=== PATIENT | male | born 1940 | race Caucasian/White ===

== ENCOUNTER → 2017-09-15 19:03 | Outpatient (CLI) | payer MEDICARE, MEDICAID ==
[2016-07-21 11:00] VITALS: BMI 23.5
[~2017-09-15 19:03] MED LIST: ADVAIR HFA [SP]12 GM INH; ARICEPT10 MG PO; ATIVAN1 MG PO; ATIVAN2 MG/ML IM; CASODEX50 MG PO; DESERYL100 MG PO; GLIPIZIDE10 MG PO; GLUCOPHAGE1000 MG PO; HALDOL5 MG/ML IM; HALOPERIDOL2 MG PO; IPRAT-ALBUT 0.5-3 ML UPD; LISINOPRIL10 MG PO; PROAIR HFA8.5 GM INH; PROTONIX40 MG PO; SEROQUEL XR150 MG PO; SYMBICORT 16010.2 GM INH; VITAMIN D5000 UNIT PO; VITAMIN D50000 UNIT PO; ZOCOR20 MG PO; ZYPREXA ZYDI5 MG/TAB PO
[2017-09-15 19:30] LABS: APPEARANCE CLEAR (CLEAR); BILIRUBIN NEGATIVE (NEGATIVE); COLOR YELLOW (YELLOW); GLUCOSE 1000 mg/dL (NEGATIVE); KETONE NEGATIVE (NEGATIVE); NITRITE NEGATIVE (NEGATIVE); PROTEIN NEGATIVE (NEGATIVE); SPECIFIC GRAVITY 1.015 (1.005-1.020); UROBILINOGEN NORMAL (NORMAL)
[2017-09-15 19:32] LABS: BACTERIA FEW /hpf (NONE SEEN)
== END | disposition home or self-care (01) ==
LOC: D.LABREF 19:03
PROVIDERS: Family Medicine
DX: N39.0 Urinary tract infection, site not specified (principal)

== ENCOUNTER 2017-09-23 15:41 | Emergency (ER) | payer MEDICARE ==
[2016-07-21 11:00] VITALS: BMI 23.5
== END 2017-09-23 19:15 ==
LOC: D.ER 15:41
DX: M25.521 Pain in right elbow (principal); W19.XXXA Unspecified fall, initial encounter; Y93.89 Activity, other specified; Y92.129 Unspecified place in nursing home as the place of occurrence of the external cause; R10.2 Pelvic and perineal pain; M54.2 Cervicalgia; R06.02 Shortness of breath; E11.9 Type 2 diabetes mellitus without complications; G30.9 Alzheimer's disease, unspecified; F02.80 Dementia in other diseases classified elsewhere, unspecified severity, without behavioral disturbance, psychotic disturbance, mood disturbance, and anxiety

== ENCOUNTER 2017-10-01 08:15 | Inpatient (IN) | payer MEDICARE ==
[2017-10-01 09:01] LABS: BASOPHILS 0.1 % (0-2); EOSINOPHILS 0.6 % (0-7); HEMATOCRIT 37.2 % (42.0-54.0); HEMOGLOBIN 12.2 g/dL (13.5-17.5); IMMATURE GRANULOCYTES 0.4 % (0-5); LYMPHOCYTES 10.9 % (15-50); MCH 31.5 pg (26.0-34.0); MCHC 32.8 g/dL (31.0-37.0); MCV 96.1 fL (80.0-100.0); MEAN PLATELET VOLUME 10.4 fL (7.4-10.4); MONOCYTES 9.5 % (2-11); NEUTROPHILS 78.5 % (40-80); PLATELET COUNT 126 10x3/uL (130-400); RBC 3.87 10x6/uL (4.20-6.10); RDW 12.7 % (11.5-14.5); WBC 15.1 10x3/uL (4.8-10.8)
[2017-10-01 09:08] LABS: APPEARANCE CLEAR (CLEAR); BILIRUBIN NEGATIVE (NEGATIVE); COLOR YELLOW (YELLOW); GLUCOSE 1000 mg/dL (NEGATIVE); KETONE MODERATE mg/dL (NEGATIVE); NITRITE NEGATIVE (NEGATIVE); PROTEIN NEGATIVE (NEGATIVE); SPECIFIC GRAVITY 1.015 (1.005-1.020); UROBILINOGEN NORMAL (NORMAL)
[2017-10-01 09:09] LABS: BACTERIA FEW /hpf (NONE SEEN); EPITHELIAL CELLS 0-5 /hpf (0-5); RED CELLS - URINE 0-5 /hpf (0-5)
[2017-10-01 09:14] LABS: ALBUMIN 3.2 g/dL (3.4-5.0); ANION GAP 12.7 mmol/L (8-16); BILIRUBIN - TOTAL 0.55 mg/dL (0.2-1.3); CALCIUM 9.7 mg/dL (8.5-10.1); CARBON DIOXIDE 27.8 mmol/L (21.0-32.0); CREATININE - SERUM 1.1 mg/dL (0.6-1.3); POTASSIUM - SERUM 4.5 mmol/L (3.5-5.1); PROTEIN - SERUM 7.1 g/dL (6.4-8.2)
[2017-10-01 11:13] VITALS: BP 146/78
[2017-10-01 12:46] VITALS: BP 146/78
[2017-10-01 17:01] VITALS: BP 113/55
[2017-10-01] MEDS ORDERED: ULTRAM50 MG PO (18:27)
[2017-10-01] MEDS ORDERED: KLONOPIN0.5 MG PO (18:29)
[2017-10-01] MEDS ORDERED: LEVEMIR100 U/M1 SC (18:30)
[2017-10-01] MEDS ORDERED: MELATONIN 3 MG1 TAB PO (18:38)
[2017-10-01] MEDS ORDERED: ZOLOFT50 MG PO (18:40)
[2017-10-01] MEDS ORDERED: KENALOG 0.1 % O15 GM TOPICAL (18:42)
[2017-10-01] MEDS ORDERED: OMEPRAZOLE20 M1 PO (18:45)
[2017-10-01] MEDS ORDERED: NORVASC2.5 MG PO (18:46)
[2017-10-01] MEDS ORDERED: DEPAKOTE250 MG PO (18:48)
[2017-10-01] MEDS ORDERED: VITAMIN D250000 UNIT PO (18:49)
[2017-10-01] MEDS ORDERED: NEURONTIN 300300 MG PO (18:50)
[2017-10-01] MEDS ORDERED: ATARAX 25 MG TA25 MG PO (18:50)
[2017-10-01] MEDS ORDERED: ACETAMINOPHEN500 M1 PO (18:51)
[2017-10-01] MEDS ORDERED: IMODIUM2 MG PO (18:55)
[2017-10-01] MEDS ORDERED: DESERYL100 MG PO (18:59)
[2017-10-01 21:21] VITALS: BP 131/81
[2017-10-02 01:15] VITALS: BP 131/54
[2017-10-02 04:23] LABS: BASOPHILS 0.1 % (0-2); HEMOGLOBIN 10.8 g/dL (13.5-17.5); IMMATURE GRANULOCYTES 0.6 % (0-5); LYMPHOCYTES 12.6 % (15-50); MCH 31.3 pg (26.0-34.0); MCHC 32.7 g/dL (31.0-37.0); MCV 95.7 fL (80.0-100.0); MEAN PLATELET VOLUME 10.1 fL (7.4-10.4); MONOCYTES 10.6 % (2-11); NEUTROPHILS 75.1 % (40-80); PLATELET COUNT 125 10x3/uL (130-400); RBC 3.45 10x6/uL (4.20-6.10); RDW 12.8 % (11.5-14.5)
[2017-10-02 04:28] LABS: WBC 11.1 10x3/uL (4.8-10.8)
[2017-10-02 04:38] VITALS: BP 148/58
[2017-10-02 05:01] LABS: ALBUMIN 2.6 g/dL (3.4-5.0); ANION GAP 14.1 mmol/L (8-16); BILIRUBIN - TOTAL 0.4 mg/dL (0.2-1.3); CALCIUM 8.1 mg/dL (8.5-10.1); CHOL - HDL RATIO 2.8 ratio (2.3-4.9); CREATININE - SERUM 1.2 mg/dL (0.6-1.3); LDL-HDL RATIO 1.4 ratio (1.5-3.5); MAGNESIUM - SERUM 1.8 mg/dL (1.8-2.4); PHOSPHOROUS 2.7 mg/dL (2.5-4.9); POTASSIUM - SERUM 4.1 mmol/L (3.5-5.1); PROTEIN - SERUM 6.1 g/dL (6.4-8.2); THYROID STIMULATING HORMONE 3.73 uIU/mL (0.36-3.74)
[2017-10-02 08:19] VITALS: BP 142/68
[2017-10-02 12:54] VITALS: BP 105/53
[2017-10-02 13:36] VITALS: BMI 25.7
[2017-10-02 16:00] VITALS: BP 116/56
[2017-10-02 21:14] VITALS: BP 141/42
[2017-10-03 01:38] VITALS: BP 154/64
[2017-10-03 05:55] VITALS: BP 136/74
[2017-10-03 08:13] VITALS: BP 124/63
[2017-10-03 08:22] LABS: BASOPHILS 0.2 % (0-2); EOSINOPHILS 2.5 % (0-7); HEMATOCRIT 31.7 % (42.0-54.0); HEMOGLOBIN 10.3 g/dL (13.5-17.5); IMMATURE GRANULOCYTES 1.1 % (0-5); LYMPHOCYTES 12.2 % (15-50); MCHC 32.5 g/dL (31.0-37.0); MCV 95.5 fL (80.0-100.0); MEAN PLATELET VOLUME 9.9 fL (7.4-10.4); MONOCYTES 12.6 % (2-11); NEUTROPHILS 71.4 % (40-80); PLATELET COUNT 127 10x3/uL (130-400); RBC 3.32 10x6/uL (4.20-6.10); RDW 12.8 % (11.5-14.5); WBC 8.8 10x3/uL (4.8-10.8)
[2017-10-03 08:31] LABS: ANION GAP 12.8 mmol/L (8-16); CALCIUM 8.3 mg/dL (8.5-10.1); CARBON DIOXIDE 25.1 mmol/L (21.0-32.0); CREATININE - SERUM 1.1 mg/dL (0.6-1.3); POTASSIUM - SERUM 3.9 mmol/L (3.5-5.1)
[2017-10-03 12:53] VITALS: BP 145/56
[2017-10-03 16:18] VITALS: BP 129/53
[2017-10-03 21:30] VITALS: BP 121/57
[2017-10-04 04:36] VITALS: BP 151/68
[2017-10-04 05:54] LABS: ANION GAP 16.8 mmol/L (8-16); CARBON DIOXIDE 22.3 mmol/L (21.0-32.0); CREATININE - SERUM 1.2 mg/dL (0.6-1.3); POTASSIUM - SERUM 4.1 mmol/L (3.5-5.1)
[2017-10-04 07:27] LABS: BASOPHILS 0.2 % (0-2); EOSINOPHILS 1.7 % (0-7); HEMATOCRIT 32.7 % (42.0-54.0); HEMOGLOBIN 10.7 g/dL (13.5-17.5); IMMATURE GRANULOCYTES 1.4 % (0-5); LYMPHOCYTES 16.2 % (15-50); MCH 31.2 pg (26.0-34.0); MCHC 32.7 g/dL (31.0-37.0); MCV 95.3 fL (80.0-100.0); MEAN PLATELET VOLUME 9.7 fL (7.4-10.4); MONOCYTES 9.7 % (2-11); NEUTROPHILS 70.8 % (40-80); PLATELET COUNT 139 10x3/uL (130-400); RBC 3.43 10x6/uL (4.20-6.10); RDW 12.8 % (11.5-14.5); WBC 8.3 10x3/uL (4.8-10.8)
[2017-10-04 08:00] VITALS: BP 90/57
[2017-10-04 12:09] VITALS: BP 166/105
[2017-10-04 16:50] VITALS: BP 125/52
[2017-10-04 22:53] VITALS: BP 145/63
[2017-10-05 01:11] VITALS: BP 146/52
[2017-10-05 04:00] VITALS: BP 141/58
[2017-10-05 04:44] LABS: BASOPHILS 0.2 % (0-2); HEMATOCRIT 30.3 % (42.0-54.0); HEMOGLOBIN 10.2 g/dL (13.5-17.5); IMMATURE GRANULOCYTES 1.2 % (0-5); LYMPHOCYTES 12.4 % (15-50); MCH 31.3 pg (26.0-34.0); MCHC 33.7 g/dL (31.0-37.0); MEAN PLATELET VOLUME 9.8 fL (7.4-10.4); MONOCYTES 11.2 % (2-11); PLATELET COUNT 151 10x3/uL (130-400); RBC 3.26 10x6/uL (4.20-6.10); RDW 12.8 % (11.5-14.5); WBC 10.1 10x3/uL (4.8-10.8)
[2017-10-05 04:49] LABS: MCV 92.9 fL (80.0-100.0)
[2017-10-05 05:10] LABS: CALCIUM 8.2 mg/dL (8.5-10.1); CARBON DIOXIDE 21.8 mmol/L (21.0-32.0); CHLORIDE - SERUM 109 mmol/L (98-107); SODIUM 141 mmol/L (136-145); UREA NITROGEN 19 mg/dL (7-18); eGFR NON AFRICAN AMERICAN 77 mL/min (90-120)
[2017-10-05 05:19] LABS: CALC OSMOLALITY 282 mosm/kg (275-300); GLUCOSE 90 mg/dL (74-106); POTASSIUM - SERUM 3.1 mmol/L (3.5-5.1)
[2017-10-05 08:50] VITALS: BP 158/68
[2017-10-05] MEDS ORDERED: LEVAQUIN750 MG PO (09:35)
[2017-10-05] MEDS ORDERED: FEXOFENADINE H180 MG PO (09:35)
[2017-10-05] MEDS ORDERED: LISINOPRIL10 MG PO (09:36)
[2017-10-05] MEDS ORDERED: PEPCID20 MG PO (09:38)
[2017-10-05] MEDS ORDERED: FLORAJEN3 CAPS460 MG PO (09:38)
[2017-10-05] MEDS ORDERED: MELATONIN 3 MG1 TAB PO (09:40)
[2017-10-05] MEDS ORDERED: NORVASC5 MG PO (09:47)
[2017-10-05 12:35] VITALS: BP 150/64
== END 2017-10-05 14:25 | DRG 190 ==
LOC: D.ER 08:15 → D.MS 10:11 → D.EDHOLD 10:11 → D.MS 10:24
PROVIDERS: Family Medicine
DX: J44.0 Chronic obstructive pulmonary disease with (acute) lower respiratory infection (principal); J18.1 Lobar pneumonia, unspecified organism; F02.81 Dementia in other diseases classified elsewhere, unspecified severity, with behavioral disturbance; J44.1 Chronic obstructive pulmonary disease with (acute) exacerbation; G30.9 Alzheimer's disease, unspecified; R53.81 Other malaise; I10 Essential (primary) hypertension; E11.9 Type 2 diabetes mellitus without complications; K21.9 Gastro-esophageal reflux disease without esophagitis; M19.90 Unspecified osteoarthritis, unspecified site; E78.5 Hyperlipidemia, unspecified; H40.9 Unspecified glaucoma